=== PATIENT | male | born 1945 | race Caucasian/White ===

== ENCOUNTER 2017-12-18 20:20 | Emergency (ER) | payer OTHER ==
[~2017-12-18] VITALS: Ht 182.9 cm; Wt 49.1 kg
[~2017-12-18 20:20] MED LIST: ALBUTEROL17 GM IH; SERTRALINE HCL25 MG PO; SPIRIVA1 INHALATI IH; SYMBICORT60 INHALAT IH
[2017-12-18 22:05] LABS: APPEARANCE CLEAR ((CLEAR)); BILIRUBIN NEGATIVE; BLOOD NEGATIVE; COLOR YELLOW ((YELLOW)); GLUCOSE (STRIP) NEGATIVE; KETONES 5; LEUKOCYTES NEGATIVE; NITRITE NEGATIVE; PROTEIN (STRIP) NEGATIVE; SPECIFIC GRAVITY 1.012 (1.000-1.030); UCUL ADDED? NO; UROBILINOGEN 0.2 MG/DL (0.2-1.0)
[2017-12-18] MEDS ORDERED: MOTRIN400 MG PO (23:10)
[2017-12-18] MEDS ORDERED: LORTAB 5-325 M1 EACH PO (23:10)
[2017-12-19] VITALS: BP 121/76
== END 2017-12-19 00:04 | disposition home or self-care (01) ==
LOC: EME → EDBD 20:20 → EME 20:20
PROVIDERS: Emergency Medicine
DX: S32.028A Other fracture of second lumbar vertebra, initial encounter for closed fracture (principal); X50.1XXA Overexertion from prolonged static or awkward postures, initial encounter; M51.36 Other intervertebral disc degeneration, lumbar region; J44.9 Chronic obstructive pulmonary disease, unspecified; Z79.51 Long term (current) use of inhaled steroids; F17.200 Nicotine dependence, unspecified, uncomplicated; F41.9 Anxiety disorder, unspecified; F32.9 Major depressive disorder, single episode, unspecified
CPT/HCPCS: 72131; 81003; 99281; 99284; J3010

== ENCOUNTER 2018-01-17 11:45 | Observation (INO) | payer OTHER ==
[~2018-01-17] VITALS: Ht 180.3 cm; Wt 53.2 kg
[~2018-01-17 11:45] MED LIST changes: +LORTAB 5-325 M1 EACH PO; +MOTRIN400 MG PO; -SERTRALINE HCL25 MG PO; +ZOLOFT50 MG PO
[2018-01-17 12:12] LABS: HEMATOCRIT 35.4 % (38.0-50.0); HEMOGLOBIN 12.1 G/DL (12.5-16.6); MCH 34.2 PG (29.0-34.0); MCHC 34.2 G/DL (30.0-36.0); RBC DIS.WIDTH-CV 12.2 % (11.8-14.6); RBC DIS.WIDTH-SD 45.2 % (39-53); RED BLOOD COUNT 3.54 M/uL (4.00-5.50); WHITE BLOOD COUNT 9.5 K/uL (4.1-10.2)
[2018-01-17 12:23] LABS: CHLORIDE 102 mEq/L (99-109); POTASSIUM 4.6 mEq/L (3.7-5.4); SODIUM 136 mEq/L (136-147)
[2018-01-17 12:26] LABS: GLUCOSE 106 mg/dL (70-99)
[2018-01-17 12:28] LABS: CREATININE 0.9 mg/dL (0.6-1.3); GFR ESTIMATE (CALCULATED) > 59 mL/min/ (58.99-99999)
[2018-01-17 12:29] LABS: UREA NITROGEN (BUN) 12 mg/dL (9-23)
[2018-01-17 12:32] LABS: MAGNESIUM 2.1 mg/dL (1.3-2.7)
[2018-01-17 13:06] LABS: PLATELET COUNT UNABLE TO REPORT K/uL (156-360)
[2018-01-17 13:24] LABS: THYROTROPIN (TSH) 5.7 MIU/L (0.4-5.5)
[2018-01-17 13:38] LABS: TROP-I INTERPRETATION NEGATIVE; TROPONIN-I < 0.01 ng/mL (0.0-0.30)
[2018-01-17 16:21] LABS: APPEARANCE CLEAR ((CLEAR)); BILIRUBIN NEGATIVE; BLOOD NEGATIVE; COLOR YELLOW ((YELLOW)); GLUCOSE (STRIP) NEGATIVE; KETONES NEGATIVE; LEUKOCYTES NEGATIVE; NITRITE NEGATIVE; PROTEIN (STRIP) 30; SPECIFIC GRAVITY 1.014 (1.000-1.030); UCUL ADDED? NO; UROBILINOGEN 0.2 MG/DL (0.2-1.0)
[2018-01-17] MEDS ORDERED: NORCO 7.5/321 TABLET PO (18:04)
[2018-01-17] MEDS ORDERED: BREO ELLIPTA I1 EACH IH (18:07)
[2018-01-17] MEDS ORDERED: LISINOPRIL5 MG PO (18:07)
[2018-01-17] MEDS ORDERED: SYNTHROID50 MCG PO (18:07)
[2018-01-17] MEDS ORDERED: FLONASE16 G1 BOTH NARES (18:08)
[2018-01-17] MEDS ORDERED: VITAMIN D31000 UNI2 PO (18:09)
[2018-01-17] MEDS ORDERED: LO-DOSE ASPIRIN81 M1 PO (18:09)
[2018-01-17 18:44] LABS: TROP-I INTERPRETATION NEGATIVE; TROPONIN-I < 0.01 ng/mL (0.0-0.30)
[2018-01-18] VITALS (8 sets, daily range): BP systolic 89–112; BP diastolic 49–56
[2018-01-18 01:59] LABS: TROP-I INTERPRETATION NEGATIVE; TROPONIN-I < 0.01 ng/mL (0.0-0.30)
[2018-01-18 05:25] LABS: HEMATOCRIT 32.2 % (38.0-50.0); HEMOGLOBIN 10.6 G/DL (12.5-16.6); MCH 32.8 PG (29.0-34.0); MCHC 32.9 G/DL (30.0-36.0); MCV 99.7 FL (86-99); RBC DIS.WIDTH-CV 12.2 % (11.8-14.6); RBC DIS.WIDTH-SD 45.4 % (39-53); RED BLOOD COUNT 3.23 M/uL (4.00-5.50); WHITE BLOOD COUNT 10.4 K/uL (4.1-10.2)
[2018-01-18 05:26] LABS: PLATELET COUNT 197 K/uL (156-360)
[2018-01-18 05:48] LABS: CHLORIDE 111 MEQ/L (99-109); CREATININE 0.7 MG/DL (0.6-1.3); GFR ESTIMATE (CALCULATED) > 59 mL/min/ (58.99-99999); POTASSIUM 4.3 MEQ/L (3.7-5.4); SODIUM 141 MEQ/L (136-147); UREA NITROGEN (BUN) 12 mg/dL (9-23)
[2018-01-18 05:51] LABS: GLUCOSE 70 mg/dL (70-99)
[2018-01-19 03:36] VITALS: BP 103/55
[2018-01-19 07:00] VITALS: BP 96/52
== END 2018-01-19 12:29 | disposition home or self-care (01) ==
LOC: EME 11:45 → 4SOUTH 17:07 → EDOF 17:07 → ENRESERV 17:09 → 4SOUTH 19:49
PROVIDERS: Emergency Medicine; Student in an Organized Health Care Education/Training Program
PROC: 0HQ1XZZ Repair Face Skin, External Approach (ICD-10-PCS; principal; 2018-01-17)
PROC: B246ZZZ Ultrasonography of Right and Left Heart (ICD-10-PCS; 2018-01-19)
DX: I95.9 Hypotension, unspecified (principal); R00.1 Bradycardia, unspecified; R09.02 Hypoxemia; I08.1 Rheumatic disorders of both mitral and tricuspid valves; S01.81XA Laceration without foreign body of other part of head, initial encounter; S00.03XA Contusion of scalp, initial encounter; I65.23 Occlusion and stenosis of bilateral carotid arteries; R63.4 Abnormal weight loss; R91.1 Solitary pulmonary nodule; F17.210 Nicotine dependence, cigarettes, uncomplicated; J44.9 Chronic obstructive pulmonary disease, unspecified; F32.9 Major depressive disorder, single episode, unspecified; M51.36 Other intervertebral disc degeneration, lumbar region; F03.90 Unspecified dementia, unspecified severity, without behavioral disturbance, psychotic disturbance, mood disturbance, and anxiety; D64.9 Anemia, unspecified; R62.7 Adult failure to thrive; E03.9 Hypothyroidism, unspecified; S32.029D Unspecified fracture of second lumbar vertebra, subsequent encounter for fracture with routine healing
CPT/HCPCS: 70450; 70553; 71045; 80048; 81003; 82948; 83735; 84443; 84484; 85027; 86850; 86900; 86901; 93005; 93306; 93880; 94640; 94640 76; 99281; 99285; G0378; G8978 GP CH; G8979 GP CH; G8980 GP CH; G8987 GO CI; G8988 GO CH; G8989 GO CI; J7040